=== PATIENT | female | born 1965 | race Hispanic/Latino ===

== ENCOUNTER 2017-04-08 08:19 | Day surgery (SDC) | payer OTHER ==
[2017-03-31 09:25] VITALS: BMI 31.1
[2017-04-08] MEDS ORDERED: Propofol 10 mg/ml Inj (20 ML) ONE ×2 (10:03→10:12)
[2017-04-08] MEDS ORDERED: Lidocaine 1% Inj (20ml) ONE (10:03)
[2017-04-08] MEDS ORDERED: Sodium Chloride 0.9% 1,000 ML IV SCH (10:45)
[2017-04-08 10:50] VITALS: TEMP 97.7
[2017-04-08 11:17] VITALS: BP 130/71; PULSE 57; RESP 18; O2SAT 100
== END 2017-04-08 11:39 | disposition home or self-care (01) ==
LOC: ENDO 08:19
PROVIDERS: ATTEND Internal Medicine Gastroenterology
DX: Z12.11 Encounter for screening for malignant neoplasm of colon (principal); K52.9 Noninfective gastroenteritis and colitis, unspecified; K64.8 Other hemorrhoids
CPT/HCPCS: 45380; 84703; 88305; J2704; J7040 ×2